=== PATIENT | female | born 1990 | race American Indian/Alaskan Native ===

== ENCOUNTER 2017-05-09 17:33 | Emergency (ER) | payer MEDICAID, OTHER ==
--- NOTE | 2017-05-09 22:48 | XRay Report ---
FINAL REPORT PROCEDURE: XR FOOT 3+V LT TECHNIQUE: LEFT foot radiographs, AP, lateral, and oblique views. CPT 37547 HISTORY: left foot injury/pain COMPARISON: No prior studies are available for comparison. FINDINGS: Fracture (s) and/or Dislocation(s): None . Alignment: Normal . Joint space(s): Normal . Soft tissues: Normal . Bone mineralization: Normal . Foreign bodies: None . Calcaneal spurring: None . IMPRESSION: Normal Examination .
--- NOTE | 2017-05-10 03:45 | Emergency Department Report ---
ED Lower Extremity HPI - General Chief Complaint: Extremity Injury, Lower Stated Complaint: LEFT FOOT INJURY Time Seen by Provider: 05/10/17 03:43 Source: patient, family Mode of arrival: Wheelchair Limitations: No Limitations - History of Present Illness Initial Comments: Patient reports that she injured her left foot at work when a shelf fell on her foot yesterday. She states that she is having pain 10 out of 10 that is achy and it is difficult for her to weight-bear. Denies any numbness or tingling to foot. She is that she has a small cut on her foot. Tetanus vaccine is not up- to-date. She says she took [id number] pain medication but it didn't help. Patient has a history of autoimmune disease that she is not sure what it is called. 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 She says she has sciatica and scoliosis. Psychiatric disorder to include anxiety. And she has asthma. Denies any surgical history. She says she is still being worked up for autoimmune disease. He says that she is supposed to be taking gabapentin but it's not working. History of chronic pain. MD Complaint: foot injury (patient with left foot injury), other (left foot abrasion) Onset/Timin -: days(s) Injury: Foot: Left (foot injury and pain from blunt trauma) Type of Injury: blunt Place: work Severity: severe Improves With: rest Worsens With: weight bearing, movement, palpation Context: direct blow Associated Symptoms: able to partially bear weight. denies: snap/pop sensation , swelling, numbness, tingling Treatments Prior to Arrival: NSAIDS - Related Data Home Medications Medication Instructions Recorded Confirmed Last Taken Diclofenac Sodium 50 mg PO DAILY 05/09/17 05/10/17 Unknown Gabapentin [Neurontin] 300 mg PO Q8HR 05/09/17 05/10/17 Unknown HYDROcodone/APAP 7.5-325 [[place] 5 mg PO Q6HR PRN 05/09/17 05/10/17 Unknown 7.5/325] Topiramate [Topamax TAB] 50 mg PO BID 05/09/17 05/10/17 Unknown Previous Rx's Medication Instructions Recorded Last Taken Type Ibuprofen [Motrin] 600 mg PO Q8H PRN #15 tablet 05/10/17 Unknown Rx Allergies Allergy/AdvReac Type Severity Reaction Status Date / Time latex Allergy Unknown Verified 05/10/17 02:17 penicillin G Allergy Hives Verified 05/10/17 02:17 ED Review of Systems ROS: Stated complaint: LEFT FOOT INJURY Other details as noted in HPI Comment: All other systems reviewed and negative Constitutional: no symptoms reported Respiratory: no symptoms reported Cardiovascular: denies: chest pain, palpitations, dyspnea on exertion Gastrointestinal: denies: abdominal pain, nausea, vomiting Genitourinary: discharge Musculoskeletal: joint swelling, arthralgia. denies: back pain, myalgia Skin: other (radiation left foot) Neurological: abnormal gait (due to left foot injury). denies: headache, weakness, numbness, paresthesias, confusion, vertigo ED Past Medical Hx - Past Medical History Previous Medical History?: Yes Hx Psychiatric Treatment: Yes (anxiety) Hx Asthma: Yes Additional medical history: scoliosis,neuropathy,myopathy,sciatia - Surgical History Past Surgical History?: No - Family History Family history: diabetes, hypertension - Social History Smoking Status: Current Every Day Smoker Substance Use Type: Alcohol Other Social History: Lives with family - Medications Home Medications: Home Medications Medication Instructions Recorded Confirmed Last Taken Type Diclofenac Sodium 50 mg PO DAILY 05/09/17 05/10/17 Unknown History Gabapentin [Neurontin] 300 mg PO Q8HR 05/09/17 05/10/17 Unknown History HYDROcodone/APAP 7.5-325 [[place] 5 mg PO Q6HR PRN 05/09/17 05/10/17 Unknown History 7.5/325] Topiramate [Topamax TAB] 50 mg PO BID 05/09/17 05/10/17 Unknown History Ibuprofen [Motrin] 600 mg PO Q8H PRN #15 tablet 05/10/17 Unknown Rx ED Physical Exam - General Limitations: No Limitations General appearance: alert, in no apparent distress - Head Head exam: Present: atraumatic, normocephalic, normal inspection - Eye Eye exam: Present: normal appearance, PERRL, EOMI Pupils: Present: normal accommodation - ENT ENT exam: Present: normal exam, normal orophraynx, mucous membranes moist - Neck Neck exam: Present: normal inspection, full ROM. Absent: tenderness, meningismus, lymphadenopathy - Respiratory Respiratory exam: Present: normal lung sounds bilaterally. Absent: respiratory distress, chest wall tenderness - Cardiovascular Cardiovascular Exam: Present: regular rate, normal rhythm, normal heart sounds. Absent: systolic murmur, diastolic murmur - GI/Abdominal GI/Abdominal exam: Present: soft, normal bowel sounds. Absent: distended, tenderness, guarding, rebound, rigid, organomegaly, mass, bruit, pulsatile mass , hernia - Extremities Exam Extremities exam: Present: normal inspection, full ROM (Pt with full range of motion to all extremities but pain with dorsiflexion and plantar flexion of the left foot.), tenderness (left anterior foot), normal capillary refill, pedal edema, other (no clubbing cyanosis or edema to extremities. +2 pulses to extremities. Neurovascular compromise to extremities.). Absent: joint swelling , calf tenderness - Expanded Lower Extremity Exam Left Hip exam: Present: normal inspection, full ROM, pelvic stability. Absent: tenderness, swelling, abrasion, laceration, ecchymosis, deformity, crepidus, dislocation, erythema, external rotation, internal rotation, shortening Upper Leg exam: Present: normal inspection, full ROM. Absent: tenderness, swelling, abrasion, laceration, ecchymosis, deformity, crepidus, dislocation, erythema Knee exam: Present: normal inspection, full ROM, full knee extension. Absent: tenderness, swelling, abrasion, laceration, ecchymosis, deformity, crepidus, dislocation, erythema, effusion, pain w/ pronation/supination, posterior draw sign, pain/laxity with valgus, pain/laxity with varus Lower Leg exam: Present: normal inspection, full ROM. Absent: tenderness, swelling, abrasion, laceration, ecchymosis, deformity, crepidus, dislocation, erythema, palpable cord, Troy's sign Ankle exam: Present: normal inspection, full ROM. Absent: tenderness, swelling , abrasion, laceration, ecchymosis, deformity, crepidus, dislocation, erythema Foot/Toe exam: Present: normal inspection, full ROM (range of motion to left foot but pain with plantarflexion and dorsiflexion), tenderness (dorsal aspect of left foot proximally), abrasion (left mid foot dorsal aspect with superficial abrasion). Absent: swelling, laceration, ecchymosis, deformity, crepidus, dislocation, erythema, amputation, puncture wound, foreign body, calcaneal tenderness, tenderness at base of 5th metatarsal, nail avulsion, subungual hematoma Neuro vascular tendon exam: Present: no vascular compromise, motor deficit ( decreased range of motion to the left foot due to pain from blunt trauma.), significant pain with passive ROM of distal joint. Absent: pulse deficit, abnormal cap refill, sensory deficit, tendon deficit, extremity cold to touch, pallor, abnormal 2-point discrimination, decreased fine/light touch, foot drop, peroneal nerve deficit Gait: Positive: antalgic - Back Exam Back exam: Present: normal inspection, full ROM, CVA tenderness (L). Absent: tenderness, CVA tenderness (R), muscle spasm, paraspinal tenderness, vertebral tenderness, rash noted - Neurological Exam Neurological exam: Present: alert, oriented X3, abnormal gait (patient with limited range of motion to left foot due to pain from blunt injury. She is limping), motor sensory deficit (normal sensation to all extremities. Decreased motor movement to left lower extremity and foot due to blunt trauma and pain.), reflexes normal - Psychiatric Psychiatric exam: Present: normal affect, normal mood - Skin Skin exam: Present: warm, dry, normal color, abrasion ( superficial abrasion located to dorsal aspect of the left anterior foot.). Absent: rash, cyanosis, erythema, petechiae, pallor, ecchymosis - Expanded Skin Exam Expanded Type of lesion: Present: abrasion Distribution of rash: LLE (anterior foot, Left) Description of rash: Present: tenderness (left anterior foot), other (facial abrasion). Absent: erythematous, swelling ED Course Vital Signs 05/09/17 05/09/17 05/10/17 19:36 19:45 02:18 Temperature 98 F 98 F 98.1 F Pulse Rate 66 66 77 Respiratory 16 16 16 Rate Blood Pressure 100/60 Blood Pressure 100/60 109/66 [Right] O2 Sat by Pulse 100 100 100 Oximetry - Reevaluation(s) Reevaluation #1: 05/10/17 04:34 Patient given Boostrix 0.5 mL in the emergency room to update tetanus, given Tecumseh 5/325 2 tablets for foot pain. Superficial abrasion cleansed with normal saline and Neosporin ointment place aside followed by Band-Aid dressing. Patient given postop shoe per her request with crutches along with training. Please see procedure note for details. - Orthopedic Splinting/Casting Injury #1 Side: left Lower Extremity Injury Location: foot Lower Extremity Immobilizer: post-op shoe Other Orthopedic Equipment: crutches Additional Comments: No neurovascular compromise. ED Lower Extremity MDM - Radiology Data Radiology results: report reviewed X-ray left foot reveal no acute fracture or dislocation. Normal exam - Medical Decision Making ED course: Report blunt trauma to left foot yesterday with pain. X-ray of left foot revealed no acute fracture or dislocation. Radiologist interprets x-ray as normal exam. This was communicated with the patient. I also instructed patient that her test was negative. Patient also has small abrasion to dorsal aspect mid foot. No signs of infection noted. Physical findings for abnormal gait due to pain and patient is limping and unable to fully weight- bear to left foot. She has no neurovascular compromise. Patient was given Boostrix 0.5 mL to update tetanus, T[place] 5/325 2 tablets given in emergency room for pain relief of pain. Patient left foot abrasion cleansed with normal saline and Neosporin ointment paste applied followed by Band-Aid. Patient given postop shoe at her request although I told her that she does not need it. She was also given crutches with training. I instructed patient if she continues to have pain in her foot that she will need to follow-up with orthopedic doctor or foot doctor. Patient pain is probably worsened from neuropathy. Patient with arthralgia to left foot secondary to blunt trauma and abrasion left foot. Discharged home with her family in stable condition with prescription for Motrin. Critical care attestation.: If time is entered above; I have spent that time in minutes in the direct care of this critically ill patient, excluding procedure time. ED Disposition Clinical Impression: Arthralgia of left foot Injury of left foot Qualifiers: Encounter type: initial encounter Qualified Code(s): S99.922A - Unspecified injury of left foot, initial encounter Abrasion of foot, left Qualifiers: Encounter type: initial encounter Qualified Code(s): S90.812A - Abrasion, left foot, initial encounter Disposition: TO HOME OR SELFCARE Is pt being admited?: No Does the pt Need Aspirin: No Condition: Stable Instructions: Arthralgia (ED), Abrasion (ED), RICE Therapy (ED), Crutch Instructions (ED), Splint Care (ED) Additional Instructions: Please follow up with primary care and your neurologist as recommended Increase fluid intake Take medication as prescribed . Referred to discharge instruction on splint care. Referred to discharge instruction in Rice therapy. These follow-up with orthopedic doctor as instructed. Please keep affected area clean and dry Prescriptions: Ibuprofen [Motrin] 600 mg PO Q8H PRN #15 tablet PRN Reason: Pain Referrals: PRIMARY MD MONIE [Primary Care Provider] - 05/14/17 WANG KING MD [Staff Physician] - 05/14/17 MARY SEQUEIRA DPM [Staff Physician] - 05/14/17 Forms: Work/School Release Form(ED)
[2017-05-10] MEDS ORDERED: TRIPLE ANTIBIOTIC TP ONE (04:09)
[2017-05-10] MEDS ORDERED: NORCO 5/325 PO ONE (04:09)
[2017-05-10] MEDS ORDERED: BOOSTRIX IM ONE (04:12)
[2017-05-10 04:46] VITALS: BP 109/71
== END 2017-05-10 05:08 | disposition home or self-care (01) ==
LOC: ED 17:33
DX: S99.922A Unspecified injury of left foot, initial encounter (principal); S90.812A Abrasion, left foot, initial encounter; M25.572 Pain in left ankle and joints of left foot; J45.909 Unspecified asthma, uncomplicated; F17.200 Nicotine dependence, unspecified, uncomplicated; Z88.0 Allergy status to penicillin; Z91.040 Latex allergy status; W22.8XXA Striking against or struck by other objects, initial encounter; Y93.9 Activity, unspecified; Y99.9 Unspecified external cause status; Y92.89 Other specified places as the place of occurrence of the external cause
CPT/HCPCS: 81025; 90471; 90715; A6250